=== PATIENT | female | born 1975 | race Two or more races ===

== ENCOUNTER 2022-06-09 08:46 | Outpatient (CLI) | payer OTHER | END 2022-06-09 09:08 | disposition home or self-care (01) | LOC: SONOGRAMA 08:46 | PROVIDERS: ATTEND Obstetrics & Gynecology Gynecology | DX: N60.11 Diffuse cystic mastopathy of right breast (principal); N60.12 Diffuse cystic mastopathy of left breast; N92.0 Excessive and frequent menstruation with regular cycle ==